=== PATIENT | female | born 1995 | race Caucasian/White ===

== ENCOUNTER → 2017-05-02 | Outpatient (CLI) | payer BC | END | disposition home or self-care (01) | LOC: US 06:44 | DX: K80.20 Calculus of gallbladder without cholecystitis without obstruction (principal) | CPT/HCPCS: 76700 ==

== ENCOUNTER → 2017-06-03 | Day surgery (SDC) | payer BC ==
[~2017-06-03] MED LIST: DESFLURANE 61 TO 120 MINUTES IH; DEXAMETHASONE SOD PHOS 20 MG/5 ML VIAL.; FAMOTIDINE 20 MG/2 ML VIAL; GLYCOPYRROLATE 1 MG/5 ML VIAL.; HYDROmorphone 2 MG/ML VIAL IV; LIDOCAINE 1% PF 2 ML VIAL. ID; LIDOCAINE 1% PF 5 ML VIAL.; MIDAZOLAM HCL/PF 2 MG/2 ML VIAL.; MORPHINE SULFATE 2 MG/ML DISP.SYRIN. IV; NEOSTIGMINE 10 MG/10 ML VIAL.; ONDANSETRON PF 4 MG/2 ML VIAL.; ONDANSETRON PF 4 MG/2 ML VIAL. IV; PROPOFOL 20 ML IV; ROCURONIUM 50 MG/5 ML VIAL.; ceFAZolin 2GM PREMIX 2 GM/50 ML BAG IV; fentaNYL PF VIAL 100 MCG/2 ML VIAL; fentaNYL PF VIAL 100 MCG/2 ML VIAL IV
[2017-06-03] MEDS: IV RINGERS,LACTATED 1000ML 1,000 ML IV (10:12)
[2017-06-03 11:23] LABS: NEG OBC UR NEG; POS OBC UR POS; U PREG PATIENT NEGATIVE (NEG)
[2017-06-03] MEDS: IOHEXOL 300 MG/ML 100ML VIAL. (11:44)
[2017-06-03] MEDS: BUPIVAC MPF-EPI 0.5%-1:200000 30 ML VIAL. INJ (11:44)
[2017-06-03] MEDS: fentaNYL PF VIAL 100 MCG/2 ML VIAL IV ×2 (12:53→13:12)
[2017-06-03] MEDS: PROCHLORPERAZINE 10 MG/2 ML VIAL. IV ×2 (12:54→14:02)
[2017-06-03] MEDS: oxyCODONE/APAP 5/325 1 TAB TABLET PO (14:44)
== END | disposition home or self-care (01) ==
LOC: SURG 09:30
DX: K80.10 Calculus of gallbladder with chronic cholecystitis without obstruction (principal); E66.01 Morbid (severe) obesity due to excess calories; Z68.39 Body mass index [BMI] 39.0-39.9, adult; E03.9 Hypothyroidism, unspecified; F41.9 Anxiety disorder, unspecified; F32.9 Major depressive disorder, single episode, unspecified
CPT/HCPCS: 47563; 74300; 81025; 88304; C1769; J0690; J0780; J1100; J2250; J2405; J2704; J2710; J3010; J3490; J7030; J7120; Q9967; S0028

== ENCOUNTER 2017-07-18 19:33 | Emergency (ER) | payer BC | END 2017-07-18 22:01 | disposition home or self-care (01) | LOC: ER 19:33 | DX: M62.838 Other muscle spasm (principal); R25.3 Fasciculation; Z90.49 Acquired absence of other specified parts of digestive tract | CPT/HCPCS: 93971; 99284 ==

== ENCOUNTER 2018-04-19 09:30 | Emergency (ER) | payer BC ==
[~2018-04-19] VITALS: Ht 172.7 cm; Wt 127.0 kg
[~2018-04-19 09:30] MED LIST changes: +AMOX1TAB61 PO; -DESFLURANE 61 TO 120 MINUTES IH; -DEXAMETHASONE SOD PHOS 20 MG/5 ML VIAL.; -FAMOTIDINE 20 MG/2 ML VIAL; -GLYCOPYRROLATE 1 MG/5 ML VIAL.; +HYDR-3164 PO; -HYDROmorphone 2 MG/ML VIAL IV; +IBUP200C9 PO; -LIDOCAINE 1% PF 2 ML VIAL. ID; -LIDOCAINE 1% PF 5 ML VIAL.; +LORA0.5T PO; -MIDAZOLAM HCL/PF 2 MG/2 ML VIAL.; -MORPHINE SULFATE 2 MG/ML DISP.SYRIN. IV; -NEOSTIGMINE 10 MG/10 ML VIAL.; -ONDANSETRON PF 4 MG/2 ML VIAL.; -ONDANSETRON PF 4 MG/2 ML VIAL. IV; +OXYC1TAB15 PO; -PROPOFOL 20 ML IV; -ROCURONIUM 50 MG/5 ML VIAL.; +SERT100T PO; +SERT25TA PO; +TIMO10DR5 EACHEYE; +TRAV5DRO EACHEYE; +TRAZ-86 PO; -ceFAZolin 2GM PREMIX 2 GM/50 ML BAG IV; -fentaNYL PF VIAL 100 MCG/2 ML VIAL; -fentaNYL PF VIAL 100 MCG/2 ML VIAL IV
[2018-04-19] MEDS ORDERED: OXYC1TAB15 PO (10:28)
--- NOTE | 2018-04-19 10:29 | PHYS DOC ---
Past Medical History Past Medical History: Anxiety, Depression Past Surgical History: Cholecystectomy, Tonsillectomy Alcohol Use: None Drug Use: None Adult General Chief Complaint Chief Complaint: POST-OP PROBLEM HPI HPI Patient is a 23 year old female who presents with poorly controlled postoperative pain. Patient had excision of pilonidal cyst performed [address] Reid. States she's been taking her home pain medication but has continued to hurt and 2 more this morning while at work her pain was uncontrolled prompting family members to bring her to the ED. No fever chills, nausea vomiting or sweats. On exam, patient has a large excision above the gluteal cleft with packing placed with minimal drainage from packing. Wound edges are pink and well demarcated, no bleeding. There is no surrounding induration and cellulitis or evidence of soft tissue infection. Patient appears to be in moderate discomfort secondary to pain. [] Review of Systems Review of Systems ROS as per HPI All other systems were reviewed and found to be within normal limits, except as documented in this note. Allergies Allergies Allergies Coded Allergies Type Severity Reaction Last Updated Verified No Known Drug Allergies 12/10/14 No Physical Exam Physical Exam Constitutional: Well developed, well nourished, no acute distress, non-toxic appearance. [] HENT: Normocephalic, atraumatic, bilateral external ears normal, oropharynx moist, no oral exudates, nose normal. []es. [] Skin: Warm, dry, no erythema, no rash. [] Back: No tenderness, no CVA tenderness. [] Buttocks: large excision above the gluteal cleft with packing placed with minimal drainage from packing. Wound edges are pink and well demarcated, no bleeding. There is no surrounding induration and cellulitis or evidence of soft tissue infection. [] Neurologic: Alert and oriented X 3, normal motor function, normal sensory function, no focal deficits noted. [] Psychologic: Affect normal, judgement normal, mood normal. [] Current Patient Data Vital Signs Vital Signs Date Time Temp Pulse Resp B/P (MAP) Pulse Ox O2 Delivery O2 Flow Rate FiO2 04/19/18 09:38 98.0 18 148/66 (93) 99 98.0 EKG EKG [] Radiology/Procedures Radiology/Procedures [] Course & Med Decision Making Course & Med Decision Making Pertinent Labs and Imaging studies reviewed. (See chart for details) [Well-appearing healing surgical wound with packing in place. No systemic symptoms. Pain addressed in the emergency department. Patient has follow-up appointment with her general surgeon the office in 2 days. Will treat supportively in the interim.] Dragon Disclaimer Ashleighon Disclaimer This electronic medical record was generated, in whole or in part, using a voice recognition dictation system. Departure Departure Impression: Primary Impression: Postoperative pain Additional Impression: Visit for wound check Disposition: HOME, SELF-CARE Condition: GOOD Referrals: YESI HERNANDEZ MD (PCP) Patient Instructions: Wound Check Additional Instructions: Please take newly prescribed pain medication as directed. Do not can find with Tylenol or other pain medication containing Tylenol. Follow-up with your general surgeon as scheduled on Saturday. Scripts Oxycodone/Apap 5-325 (PERCOCET 5-325 MG TABLET ) 1 Each Tablet 1-2 TAB PO PRN Q6HRS PRN for PAIN for 3 Days, #20 TAB 0 Refills Prov: CIRO VIERA DO 04/19/18 Problem Qualifiers CIRO VIERA DO Apr 19, 2018 10:29
[2018-04-19] MEDS ORDERED: MORPHINE SULFATE 10 MG/ML VIAL. IV ONE (10:30)
[2018-04-19] MEDS ORDERED: ONDANSETRON PF 4 MG/2 ML VIAL. IV ONE (10:30)
[2018-04-19 11:09] VITALS: BP 140/63
== END 2018-04-19 11:11 | disposition home or self-care (01) ==
LOC: ER 09:30
DX: G89.18 Other acute postprocedural pain (principal); F41.9 Anxiety disorder, unspecified; F32.9 Major depressive disorder, single episode, unspecified; Z90.49 Acquired absence of other specified parts of digestive tract; Z90.89 Acquired absence of other organs
CPT/HCPCS: 96374; 96375; 99283; J2270; J2405; 99284